=== PATIENT | male | born 2000 | race Two or more races ===

== ENCOUNTER 2021-10-30 22:42 | Emergency (ER) | payer OTHER ==
[~2021-10-30] VITALS: Ht 172.7 cm; Wt 113.6 kg
[2021-10-30 23:01] VITALS: BP 131/64
[2021-10-31] MEDS ORDERED: ondansetron 4mg rapidly disintigrating tab PO ONE (01:15)
[2021-10-31] MEDS ORDERED: TETanus/Pertussis (Acell)/Diphther VAC/PF (Tdap-Adult) 0.5ml syringe IMVAC ONE (01:15)
[2021-10-31] MEDS ORDERED: LIDOcaine 1% W/epiNEPHrine 1:200,000 10ml vial IJ ONE (01:15)
[2021-10-31] MEDS ORDERED: sulfamethoxazole/trimethoprim DS (800/160mg) tablet PO ONE (01:15)
[2021-10-31] MEDS ORDERED: cephalexin 250mg capsule PO ONE (01:15)
[2021-10-31] MEDS ORDERED: acetaminophen 325mg tablet PO ONE (01:15)
[2021-10-31] MEDS ORDERED: LIDOcaine 1% w/EPI 1:100,000 30ml vial (MDV) IJ ONE ×2 (01:20→01:25)
[2021-10-31] MEDS ORDERED: LIDOcaine 1% W/epiNEPHrine 1:100,000 20ml vial IJ ONE (01:25)
[2021-10-31] MEDS ORDERED: SULF1TAB49 PO (02:18)
[2021-10-31] MEDS ORDERED: CEPH250T PO (02:18)
[2021-10-31] MEDS ORDERED: bacitracin 15gm ointment TP ONE (02:20)
--- NOTE | 2021-10-31 02:45 | NUR ---
Patient wound's were dressed by this mortgage loan underwriter. Patient sent home with dressing supplies for home.
== END 2021-10-31 02:56 | disposition home or self-care (01) ==
LOC: ER 22:43
DX: L02.211 Cutaneous abscess of abdominal wall (principal); L89.321 Pressure ulcer of left buttock, stage 1
CPT/HCPCS: 10061; 71045; 90471; 90715; 93005; 99284; A6258; A6449